=== PATIENT | female | born 1990 | race Caucasian/White ===

== ENCOUNTER 2025-09-24 20:05 | Emergency (ER) | payer MEDICAID ==
[~2025-09-24] VITALS: Ht 167.6 cm; Wt 52.0 kg
[2025-09-24 21:50] VITALS: PULSE 85; RESP 16; O2SAT 98
[2025-09-24] MEDS: ALBUTEROL (0.083%) 2.5MG/3ML NEB HHN ONE (21:51)
[2025-09-24] MEDS ORDERED: ALBU18HF2 IH (22:06)
[2025-09-24 22:10] VITALS: BP 124/76; PULSE 96; RESP 20; TEMP 36.6; O2SAT 100
== END 2025-09-24 22:10 | disposition home or self-care (01) ==
LOC: ER 20:05
DX: R05.9 Cough, unspecified (principal); Z98.890 Other specified postprocedural states; Z88.0 Allergy status to penicillin
CPT/HCPCS: 71045; 94640; 98960; 99283; Z7610 ×3; 94070; 94664